=== PATIENT | female | born 1940 | race African-American/Black ===

== ENCOUNTER → 2017-05-07 13:57 | Outpatient (CLI) | payer MEDICARE, OTHER, SELFPAY ==
[2017-05-07 14:00] VITALS: PULSE 74; PULSE 80; PULSE 82; PULSE 86; PULSE 90; PULSE 92; PULSE 95; O2SAT 92; O2SAT 96; O2SAT 97; O2SAT 98
--- NOTE | 2017-05-07 14:24 | CPS ---
Pt states she usually walks faster but her knee is bothering her. She states she has surgery scheduled in the near future.
--- NOTE | 2017-05-08 08:31 | WT_ITS ---
PSN 6 Minute Walk Test - 6 Minute Walk Test 6 Minute Walk Test: 6 Minute Walk Test PSN:6-Minute Walk Test Start: 05/07/17 14: 19 Freq: Status: Active Protocol: RESP.6MINW Document 05/07/17 14:00 SMB (Rec: 05/07/17 14:28 SMB [id number]) 6 Minute Walk Test Date Performed 05/07/17 Time Performed 14:00 Height 5 ft 5 in Weight: 76.657 kg Weight in Pounds 169.[address]: Juan Manuel Ching Assistive device used: None Pre-test Oxygen Delivery Method Room Air Pulse Ox (%) 97 Pulse Rate (60-100 beats/min) 74 Dyspnea Chio Scale (0-10) 0 Exertion Chio Scale (6-20) 6 1st minute Oxygen Delivery Method Room Air Pulse Ox (%) 98 Pulse Rate (60-100 beats/min) 80 2nd minute Oxygen Delivery Method Room Air Pulse Ox (%) 92 Pulse Rate (60-100 beats/min) 86 3rd minute Oxygen Delivery Method Room Air Pulse Ox (%) 96 Pulse Rate (60-100 beats/min) 90 4th minute Oxygen Delivery Method Room Air Pulse Ox (%) 97 Pulse Rate (60-100 beats/min) 92 5th minute Oxygen Delivery Method Room Air Pulse Ox (%) 98 Pulse Rate (60-100 beats/min) 92 6th minute Oxygen Delivery Method Room Air Pulse Ox (%) 98 Pulse Rate (60-100 beats/min) 95 Dyspnea Chio Scale (0-10) 0 Exertion Chio Scale (6-20) 12 Post-test Oxygen Delivery Method Room Air Pulse Ox (%) 98 Pulse Rate (60-100 beats/min) 82 Full Laps Walked 11 Partial Lap, Number of Tiles Walked 30 Total Distance Walked (ft) 679 05/07/17 14:24 Cardiopulmonary Services by Eliza Hwang Pt states she usually walks faster but her knee is bothering her. She states she has surgery scheduled in the near future. Initialized on 05/07/17 14:24 - END OF NOTE - Interpretation Interpretation: Patient was able to ambulate only 679 feet over the course of 6 minutes on room air with no assistive devices or breaks. The patient did not experience any significant desaturation or tachycardia during testing. These findings are consistent with a musculoskeletal limitation exercise tolerance. - Recommendations Recommendations: No supplemental oxygen is indicated at this time. Sensitivity for desaturation is limited given minimal distance travel.
== END ==
PROVIDERS: Family Provider Family Medicine; PCP Family Medicine; Visit Provider Nurse Practitioner Acute Care
DX: R06.02 Shortness of breath (principal)
CPT/HCPCS: 94618

== ENCOUNTER → 2017-05-09 09:57 | Outpatient (CLI) | payer MEDICARE, OTHER, SELFPAY ==
--- NOTE | 2017-05-09 14:16 | PFTCOMP ---
COMPLETE PULMONARY FUNCTION TEST INTERPRETATION Brief HPI: Patient is a 76 year old Black female, currently under the care of Geovanna Garcia, who presents to [facility] for complete pulmonary function tests secondary to diagnosis of dyspnea. Respiratory therapist reports good effort and reproducible results. Interpretation: Forced expiration spirometry shows a moderate large airways obstructive ventilatory defect with an FEV1 of 67% predicted. There is a significant bronchodilator response in FVC and FEV1 by ATS criteria. Spirograms are of good quality and plateau slowly, indicating slowly emptying areas of the lungs. The respiratory flow volume loop shows decreased expiratory flow rates at all lung volumes consistent with airway obstruction. Lung volumes by body plethysmography show a normal total lung capacity at 4.7 L, 94 % predicted. FRC and RV are elevated out of proportion. Lung volume measurements are consistent with air-trapping. Diffusion capacity by carbon monoxide is normal at 69 % predicted. The airway resistance is elevated. No previous pulmonary function tests were available for review. Impression: Partially reversible moderate large airways obstructive ventilatory defect resulting in air trapping.
--- NOTE | 2017-05-09 14:19 | PFTCOMP_ITS ---
COMPLETE PULMONARY FUNCTION TEST INTERPRETATION Brief HPI: Patient is a 76 year old Black female, currently under the care of Geovanna Garcia, who presents to [facility] for complete pulmonary function tests secondary to diagnosis of dyspnea. Respiratory therapist reports good effort and reproducible results. Interpretation: Forced expiration spirometry shows a moderate large airways obstructive ventilatory defect with an FEV1 of 67% predicted. There is a significant bronchodilator response in FVC and FEV1 by ATS criteria. Spirograms are of good quality and plateau slowly, indicating slowly emptying areas of the lungs. The respiratory flow volume loop shows decreased expiratory flow rates at all lung volumes consistent with airway obstruction. Lung volumes by body plethysmography show a normal total lung capacity at 4.7 L , 94 % predicted. FRC and RV are elevated out of proportion. Lung volume measurements are consistent with air-trapping. Diffusion capacity by carbon monoxide is normal at 69 % predicted. The airway resistance is elevated. No previous pulmonary function tests were available for review. Impression: Partially reversible moderate large airways obstructive ventilatory defect resulting in air trapping.
== END ==
PROVIDERS: Family Provider Family Medicine; PCP Family Medicine; Visit Provider Nurse Practitioner Acute Care
DX: R06.02 Shortness of breath (principal)
CPT/HCPCS: 94060; 94726; 94729

== ENCOUNTER → 2018-02-02 14:40 | Outpatient (CLI) | payer MEDICARE, OTHER, SELFPAY ==
[2017-12-18 12:40] VITALS: BMI 24.7
[2018-02-02 17:51] LABS: Absolute Lymphocyte Count 2.08 X10^3/ul (0.83-4.51); Absolute Neutrophil Count 1.8 X10^3/uL (2.0-7.7); Basophil# 0.02 X10^3/uL; Basophil% 0.4 % (0-1); Eosinophil# 0.12 X10^3/uL; Eosinophils% 2.6 % (0-5); Hematocrit 38.2 % (37-47); Hemoglobin 12.4 g/dl (12.0-15.0); Lymphocyte # 2.08 X10^3/ul (4.0); Lymphocyte % 45.7 % (19-41); Mean Corp Hgb Conc 32.5 g/gl (32-36); Mean Corpuscular Hgb 33.4 pg (27.0-32.0); Mean Platelet Vol. 9.6 fl (6.2-12.0); Monocyte# 0.53 X10^3/uL; Monocyte% 11.6 % (0-10); Neutrophil # 1.79 X10^3/uL (2.7-7.7); Neutrophil % 39.5 % (47-70); Platelet Count 290 K/mm3 (150-450); RBC Distribution Width CV 13.6 % (11.6-14.6); RBC Distribution Width SD 49.7 fl (35.1-43.9); Red Blood Count 3.71 M/mm3 (4.2-5.4); White Blood Count 4.6 K/mm3 (4.4-11.0)
[2018-02-02 17:54] LABS: POSITIVE COUNT NO; POSITIVE DIFFERENTIAL NO; POSITIVE MORPHOLOGY NO
[2018-02-02 18:05] LABS: ALB/GLOB Ratio 0.9 RATIO (0.9-2.4); AST(SGOT) 22 U/L (15-37); Alanine Aminotransfer ALT/SGPT 26 U/L (13-56); Albumin, Serum 3.7 g/dL (3.2-5.0); Alkaline Phosphatase 102 U/L (45-117); Anion Gap 10 (5-15); BUN 20 mg/dL (7-18); Calcium,Total 8.8 mg/dL (8.5-10.1); Chloride 111 mmol/L (98-107); Creatinine, Serum 1.11 mg/dL (0.55-1.02); EST Glomerular Filtration Rate 51 mL/min (>60); Est Glom Filt Rate - Afr Amer 62 mL/min (>60); Globulin 4.1 g/dL (2.2-4.2); Glucose 73 mg/dL (74-106); Potassium 3.7 mmol/L (3.5-5.1); Protein, Total 7.8 g/dL (6.4-8.2); Sodium Level 145 mmol/L (136-145)
== END ==
PROVIDERS: Family Provider Family Medicine; PCP Family Medicine; Referring Provider Internal Medicine Rheumatology; Visit Provider Internal Medicine Rheumatology
DX: M06.4 Inflammatory polyarthropathy (principal); Z79.899 Other long term (current) drug therapy; M79.7 Fibromyalgia; M35.00 Sjogren syndrome, unspecified; M15.9 Polyosteoarthritis, unspecified; G56.00 Carpal tunnel syndrome, unspecified upper limb; K21.0 Gastro-esophageal reflux disease with esophagitis
CPT/HCPCS: 36415; 80053; 85025

== ENCOUNTER → 2018-04-08 13:13 | Outpatient (CLI) | payer MEDICARE, OTHER, SELFPAY ==
[2017-12-18 12:40] VITALS: BMI 24.7
[2018-04-08 16:12] LABS: Absolute Lymphocyte Count 1.85 X10^3/ul (0.83-4.51); Absolute Neutrophil Count 2.4 X10^3/uL (2.0-7.7); Basophil# 0.03 X10^3/uL; Basophil% 0.6 % (0-1); Eosinophil# 0.27 X10^3/uL; Eosinophils% 5.3 % (0-5); Hematocrit 37.3 % (37-47); Hemoglobin 11.8 g/dl (12.0-15.0); Lymphocyte # 1.85 X10^3/ul (4.0); Lymphocyte % 36.4 % (19-41); Mean Corp Hgb Conc 31.6 g/gl (32-36); Mean Corpuscular Volume 101.1 fL (81-99); Mean Platelet Vol. 10.3 fl (6.2-12.0); Monocyte% 9.8 % (0-10); Neutrophil # 2.43 X10^3/uL (2.7-7.7); Neutrophil % 47.9 % (47-70); Platelet Count 227 K/mm3 (150-450); RBC Distribution Width CV 12.1 % (11.6-14.6); RBC Distribution Width SD 43.2 fl (35.1-43.9); Red Blood Count 3.69 M/mm3 (4.2-5.4); White Blood Count 5.1 K/mm3 (4.4-11.0)
[2018-04-08 16:13] LABS: AST(SGOT) 16 U/L (15-37); Alanine Aminotransfer ALT/SGPT 21 U/L (13-56); Albumin, Serum 3.4 g/dL (3.2-5.0); Alkaline Phosphatase 92 U/L (45-117); Anion Gap 6 (5-15); BUN 22 mg/dL (7-18); BUN/Creat Ratio 18.2 RATIO (10-20); Calcium,Total 8.9 mg/dL (8.5-10.1); Chloride 114 mmol/L (98-107); Creatinine, Serum 1.21 mg/dL (0.55-1.02); EST Glomerular Filtration Rate 46 mL/min (>60); Est Glom Filt Rate - Afr Amer 56 mL/min (>60); Globulin 3.3 g/dL (2.2-4.2); Glucose 89 mg/dL (74-106); Potassium 4.4 mmol/L (3.5-5.1); Protein, Total 6.7 g/dL (6.4-8.2); Sodium Level 144 mmol/L (136-145)
[2018-04-08 16:44] LABS: POSITIVE COUNT NO; POSITIVE DIFFERENTIAL NO; POSITIVE MORPHOLOGY NO
== END ==
PROVIDERS: Family Provider Family Medicine; PCP Family Medicine; Referring Provider Internal Medicine Rheumatology; Visit Provider Internal Medicine Rheumatology
DX: M06.4 Inflammatory polyarthropathy (principal); Z79.899 Other long term (current) drug therapy; M79.7 Fibromyalgia; M35.00 Sjogren syndrome, unspecified; G56.00 Carpal tunnel syndrome, unspecified upper limb; K21.0 Gastro-esophageal reflux disease with esophagitis; I10 Essential (primary) hypertension; E11.9 Type 2 diabetes mellitus without complications; Z86.718 Personal history of other venous thrombosis and embolism
CPT/HCPCS: 36415; 80053; 85025

== ENCOUNTER → 2018-05-14 10:57 | Outpatient (CLI) | payer MEDICARE, OTHER, SELFPAY ==
[2017-12-18 12:40] VITALS: BMI 24.7
--- NOTE | 2018-05-15 10:51 | PFT_ITS ---
INTRODUCTION: The patient is a 77-year-old -[place] female that presents for pulmonary function studies secondary to a diagnosis of COPD. Respiratory therapy reports good patient effort. Bronchodilators were used during testing. INTERPRETATION: Forced expiration spirometry demonstrates the presence of a mild large airways obstructive ventilatory defect. There was no significant response to aerosolized bronchodilators. Spirograms are of good quality and do not plateau indicating slow emptying of the lungs. Body plethysmography was performed and reveals a decreased TLC to 4.1 L, 81% of predicted, indicative of a mild restrictive ventilatory impairment. Diffusing capacity by single breath CO is within normal limits at 83% of predicted. IMPRESSION: These pulmonary function studies demonstrate the presence of an irreversible mild mixed ventilatory defect with preserved diffusing capacity.
== END ==
PROVIDERS: Family Provider Family Medicine; PCP Family Medicine; Referring Provider Nurse Practitioner Acute Care; Visit Provider Nurse Practitioner Acute Care
DX: J44.9 Chronic obstructive pulmonary disease, unspecified (principal)
CPT/HCPCS: 94060; 94726; 94729

== ENCOUNTER → 2018-05-18 10:49 | Outpatient (CLI) | payer MEDICARE, OTHER, SELFPAY ==
[2017-12-18 12:40] VITALS: BMI 24.7
[2018-05-18 11:00] VITALS: PULSE 66; PULSE 69; PULSE 70; PULSE 81; PULSE 82; PULSE 86; O2SAT 96; O2SAT 97; O2SAT 98; O2SAT 99
--- NOTE | 2018-05-18 13:30 | PCM.PSN.6M ---
PSN 6 Minute Walk Test - 6 Minute Walk Test 6 Minute Walk Test: 6 Minute Walk Test PSN:6-Minute Walk Test Start: 05/18/18 11:15 Freq: Status: Active Protocol: RESP.6MINW Document 05/18/18 11:00 EW (Rec: 05/18/18 11:18 EW [id number]) 6 Minute Walk Test Date Performed 05/18/18 Time Performed 11:00 Height 5 ft 5 in Weight: 69.4 kg Weight in Pounds 153.[address]: Geovanna Garcia Assistive device used: None Pre-test Oxygen Delivery Method Room Air Pulse Ox (%) 96 Pulse Rate (60-100 beats/min) 66 Dyspnea Chio Scale (0-10) 1 Exertion Chio Scale (6-20) 7 1st minute Oxygen Delivery Method Room Air Pulse Ox (%) 96 Pulse Rate (60-100 beats/min) 70 2nd minute Oxygen Delivery Method Room Air Pulse Ox (%) 97 Pulse Rate (60-100 beats/min) 81 3rd minute Oxygen Delivery Method Room Air Pulse Ox (%) 98 Pulse Rate (60-100 beats/min) 86 4th minute Oxygen Delivery Method Room Air Pulse Ox (%) 99 Pulse Rate (60-100 beats/min) 81 5th minute Oxygen Delivery Method Room Air Pulse Ox (%) 98 Pulse Rate (60-100 beats/min) 82 6th minute Oxygen Delivery Method Room Air Pulse Ox (%) 99 Pulse Rate (60-100 beats/min) 82 Post-test Oxygen Delivery Method Room Air Pulse Ox (%) 98 Pulse Rate (60-100 beats/min) 69 Dyspnea Chio Scale (0-10) 1 Exertion Chio Scale (6-20) 11 Full Laps Walked 13 Partial Lap, Number of Tiles Walked 0 Total Distance Walked (ft) 767 - Interpretation Interpretation: The patient was able to ambulate 767 feet over the course of 6 minutes on room air with no assistive devices or breaks. Patient experienced no significant tachycardia or desaturations during testing. These findings are consistent with a musculoskeletal limitation exercise tolerance. - Recommendations Recommendations: No supplemental oxygen is indicated at this time.
== END ==
PROVIDERS: Family Provider Family Medicine; PCP Family Medicine; Referring Provider Nurse Practitioner Acute Care; Visit Provider Nurse Practitioner Acute Care
DX: J44.9 Chronic obstructive pulmonary disease, unspecified (principal)
CPT/HCPCS: 94618

== ENCOUNTER → 2018-06-04 11:41 | Outpatient (CLI) | payer MEDICARE, OTHER, SELFPAY ==
[2018-06-04 11:12] VITALS: BMI 26.1
[2018-06-04 12:18] LABS: Absolute Lymphocyte Count 1.75 X10^3/ul (0.83-4.51); Absolute Neutrophil Count 2.4 X10^3/uL (2.0-7.7); Basophil# 0.04 X10^3/uL; Basophil% 0.8 % (0-1); Eosinophil# 0.14 X10^3/uL; Hematocrit 35.7 % (37-47); Hemoglobin 11.6 g/dl (12.0-15.0); Lymphocyte # 1.75 X10^3/ul (4.0); Lymphocyte % 37.2 % (19-41); Mean Corp Hgb Conc 32.5 g/gl (32-36); Mean Corpuscular Hgb 31.8 pg (27.0-32.0); Mean Corpuscular Volume 97.8 fL (81-99); Mean Platelet Vol. 9.3 fl (6.2-12.0); Monocyte# 0.36 X10^3/uL; Monocyte% 7.6 % (0-10); Neutrophil # 2.42 X10^3/uL (2.7-7.7); Neutrophil % 51.4 % (47-70); Platelet Count 229 K/mm3 (150-450); RBC Distribution Width CV 14.1 % (11.6-14.6); RBC Distribution Width SD 49.9 fl (35.1-43.9); Red Blood Count 3.65 M/mm3 (4.2-5.4); White Blood Count 4.7 K/mm3 (4.4-11.0)
[2018-06-04 12:29] LABS: POSITIVE COUNT NO; POSITIVE DIFFERENTIAL NO; POSITIVE MORPHOLOGY NO
[2018-06-15 03:05] LABS: Alternaria tenuis <0.10 kU/L (Class 0); Ash, White <0.10 kU/L (Class 0); Aspergillus fumigatus <0.10 kU/L (Class 0); Bermuda Grass <0.10 kU/L (Class 0); Birch <0.10 kU/L (Class 0); Black Walnut <0.10 kU/L (Class 0); Cat Hair / Dander,Stand <0.10 kU/L (Class 0); Cedar, Mountain <0.10 kU/L (Class 0); Cladosporium herbarum <0.10 kU/L (Class 0); Cockroach, American <0.10 kU/L (Class 0); Cottonwood <0.10 kU/L (Class 0); D farinae Mite <0.10 kU/L (Class 0); D pteronyssinus <0.10 kU/L (Class 0); Dog Epithelia <0.10 kU/L (Class 0); Elm, American White <0.10 kU/L (Class 0); Immunoglobulin E 35 IU/mL (6-495); Maple/Box Elder <0.10 kU/L (Class 0); Mulberry, White <0.10 kU/L (Class 0); Oak, White <0.10 kU/L (Class 0); Pecan <0.10 kU/L (Class 0); Penicillium Notatum <0.10 kU/L (Class 0); Pigweed, Rough <0.10 kU/L (Class 0); Ragweed, Short/Common <0.10 kU/L (Class 0); Russian Thistle <0.10 kU/L (Class 0); Sheep Sorrel <0.10 kU/L (Class 0); Sycamore, American <0.10 kU/L (Class 0); Timothy Grass <0.10 kU/L (Class 0)
[2018-06-15 10:01] LABS: Immunoglobulin E 41 IU/mL (6-495); Mouse Urine <0.10 kU/L (Class 0)
== END ==
PROVIDERS: Family Provider Family Medicine; PCP Family Medicine; Referring Provider Internal Medicine Critical Care Medicine; Visit Provider Internal Medicine Critical Care Medicine
DX: I10 Essential (primary) hypertension (principal); J30.9 Allergic rhinitis, unspecified
CPT/HCPCS: 36415; 82785; 85025; 86003

== ENCOUNTER → 2018-10-15 10:41 | Outpatient (CLI) | payer MEDICARE, OTHER, SELFPAY ==
[2018-06-04 11:12] VITALS: BMI 26.1
--- NOTE | 2018-10-15 10:47 | ADU_ITS ---
Reason For Study: Atherosclerosis Right Velocities Left Velocities Ext. Iliac Artery, dist = 208.9 cm./sec. Ext Iliac Artery, dist = 170.1 cm./sec. Common Femoral Artery, mid = 159.6 cm./sec. Common Femoral Artery, mid = 144.1 cm./sec. Supf Femoral Artery, prox = 144 cm./sec. Supf. Femoral Artery, prox = 137.4 cm./sec. Supf Femoral Artery, mid = 111 cm./sec. Supf. Femoral Artery, mid = 124.2 cm./sec. Supf Femoral Artery, dist. = 68.3 cm./sec. Supf. Femoral Artery, dist = 91.3 cm./sec. Profunda Femoral Artery = 119.8 cm./sec. Profunda Femoral Artery = 122 cm./sec. Popliteal Artery, prox. = 52.3 cm./sec. Popliteal Artery, proximal, = 57.2 cm./sec. Popliteal Artery, mid = 57.2 cm./sec. Popliteal Artery, mid = 63.4 cm./sec. Popliteal Artery, dist = 107 cm./sec. Popliteal Artery, distal = 63.4 cm./sec. Ant. Tibial Artery, prox = 69.5 cm./sec. Ant.Tibial Artery, prox = 48.7 cm./sec. Ant. Tibial Artery, mid = 62.1 cm./sec. Ant Tibial Artery, mid = 61 cm./sec. Ant. Tibial Artery, dist = 44.9 cm./sec. Ant. Tibial Artery, distal = 54.4 cm./sec. Post. Tibial Artery, prox = 72.3 cm./sec. Post. Tibial Artery, prox = 78.1 cm./sec. Post. Tibial Artery, mid = 77.8 cm./sec. Post Tibial Artery, mid = 59.7 cm./sec. Post. Tibial Artery, dist = 51.1 cm./sec. Post Tibial Artery, dist. = 56 cm./sec. Peroneal Artery, prox = 59.7 cm./sec. Peroneal Artery, prox = 65.8 cm./sec. Peroneal Artery, mid = 44.9 cm./sec. Peroneal Artery, mid = 67 cm./sec. Peroneal Artery,dist = 30.2 cm./sec. Peroneal Artery,dist. = 36.9 cm./sec. Procedure Exam performed in department. Interpretation Summary 1. bilateral lower extremity with triphasic flow and no stenosis visualized. Ordering Physician: Stanford Menard Referring Physician: Albert Jasso Performed By: Eliza Stephens RVT
== END ==
PROVIDERS: Family Provider Family Medicine; PCP Family Medicine; Referring Provider Surgery Vascular Surgery; Visit Provider Surgery Vascular Surgery
DX: I70.213 Atherosclerosis of native arteries of extremities with intermittent claudication, bilateral legs (principal)
CPT/HCPCS: 93925

== ENCOUNTER → 2019-03-29 | Outpatient (CLI) | payer MEDICARE, OTHER, SELFPAY ==
[2018-12-15 10:53] VITALS: BMI 27.3
--- NOTE | 2019-03-29 13:44 | RAD_ITS ---
STUDY: X-RAY - CERVICAL SPINE REASON FOR EXAM: Female, 78 years old. CHRONIC NECK PAIN TECHNIQUE: 2 view(s) of the cervical spine were obtained. COMPARISON: None FINDINGS: There are degenerative changes of the anterior atlantoaxial articulation. Normal odontoid process. There is straightening of the normal cervical lordosis. There is been a prior fusion C4-C5 and C6. There is degenerative change at C3-C4 and C6-C7. Normal disc space heights. Normal visualized intervertebral neuroforamina. The soft tissue structures are unremarkable. RAD/Cerv Spine 2 or 3 Views IMPRESSION: Prior fusion in the mid cervical vertebral bodies. Degenerative change proximal and distal to the fusion. No visualized acute fracture, a comparison study would be helpful to establish stability.. Electronically Signed: Jie Velazquez MD at 0:52 EST Tel , Service support ,
--- NOTE | 2019-03-29 14:02 | RAD_ITS ---
STUDY: X-RAY - LUMBAR SPINE REASON FOR EXAM: Female, 78 years old. CHRONIC LOW BACK PAIN TECHNIQUE: 2 view(s) of the lumbar spine were obtained. COMPARISON: CT scan abdomen and pelvis bone windows March 30, 2012 FINDINGS: There is straightening of the normal lumbar lordosis. There is no substantial scoliosis. There is a normal alignment of the vertebrae. There is a spinal fusion at L3-L4. There is partial protrusion of the disc spacer is seen on the prior CT scan abdomen and pelvis August 28, 2012.. There is multilevel disc space narrowing. This is especially seen at the level L4-L5 L5-S1 with vacuum phenomenon. There is postoperative change in the left upper quadrant. RAD/Lumbar Spine 2 or 3 Views IMPRESSION: Status post spinal fusion L3-L4 with persistent protrusion of the disc space . No evidence of acute loss of height or alignment. Postoperative changes left upper quadrant.. Electronically Signed: Jie Velazquez MD at 0:53 EST Tel , Service support ,
== END | disposition home or self-care (01) ==
LOC: RAD 13:16
PROVIDERS: PCP Family Medicine; Referring Provider Anesthesiology Pain Medicine; Visit Provider Anesthesiology Pain Medicine
DX: M54.2 Cervicalgia (principal); M54.5 Low back pain
CPT/HCPCS: 72040; 72100

== ENCOUNTER 2019-07-19 10:49 | Emergency (ER) | payer MEDICARE, OTHER, SELFPAY ==
[2019-07-09 13:08] VITALS: BMI 26.6
[2019-07-19] VITALS (8 sets, daily range): BP systolic 127–157; BP diastolic 67–87; PULSE 52–63; RESP 13–19; TEMP 36.1–36.8; O2SAT 95–99; BMI 26.4
--- NOTE | 2019-07-19 11:31 | EKG12_ITS ---
Test Reason : ILLNESS Blood Pressure : / mmHG Vent. Rate : 088 BPM Atrial Rate : 046 BPM P-R Int : 000 ms QRS Dur : 084 ms QT Int : 392 ms P-R-T Axes : 022 028 048 degrees QTc Int : 474 ms Atrial fibrillation Nonspecific T wave abnormality Prolonged QT Abnormal ECG Confirmed by JOSIE ULLOA, LETHA ([id number]), newspaper editor managing RAHUL WHITE ([id number]) on 07/20/2019 3:46:21 PM Referred By: MADISON Confirmed By:LETHA GALINDO MD
--- NOTE | 2019-07-19 11:33 | ED.DCSUM_ITS ---
History of Present Illness Chief Complaint: Shortness of Breath Informant: Patient Onset: Weeks - 1-2 Activity at onset: Unknown Timing: Intermittent - it's frequent, Lasts - it's frequent Quality: Dull, Pain, Pressure Location: Left Chest - no radiation Current Severity: Mild Maximum Severity: Moderate Worsened By: Breathing - sometimes Relieved By: Nothing Associated Symptoms: Dyspnea - worse w/ exertion, Cough. Negative for: Nausea, Vomiting, Diaphoresis, Fever, Lightheadedness, Palpitations Narrative: Apparently patient was seen in the office today, by cardiology, she does not know why she sees cardiology as an outpatient, and she does not know what kind of medical problems or medication she takes/has, she apparently was too short of breath to be evaluated there and was sent here. They wanted to test her for COVID, but they were concerned about how long it would take the test to come back. Patient states she has been having some mild chest discomfort that occasionally is pleuritic. She has a history of DVT and PE, this does not necessarily feel like her prior PE, it is left upper chest. It does not radiate down her arm and is not exertional. She can provide few details about the timing and nature of the onset of this. She is speaking full sentences, she states that her memory is poor. 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 (6) Deep vein thrombosis of both lower extremities Status: Resolved (7) History of pulmonary embolus (PE) Status: Resolved Past Medical History - Allergies and Home Meds Allergies/Adverse Reactions: Allergies codeine Allergy (Mild, Verified 07/19/19 12:25) Nausea/Vomitting morphine Allergy (Mild, Verified 07/19/19 12:25) Nausea/vomitting oxycodone Allergy (Mild, Verified 07/19/19 12:25) Itching Primary Care Physician: Albert Jasso MD [Primary Care Provider] - 3-5 Days Surgical History: knee arthroscopy, bunion surgery, Lucy fundoplication,, rotator cuff repair Review of Systems General: Reports: Chills. Denies: Fever, Sweats Eyes: Denies: Visual changes - bilaterally, Diplopia ENT: Denies: Bilateral ear pain, Rhinorrhea, Sore throat Cardiovascular: Reports: Chest pain. Denies: Palpitations, Heart racing Respiratory: Reports: Dyspnea, Cough, Dyspnea on exertion. Denies: Sputum, Orthopnea Gastrointestinal: Denies: Abdominal pain, Nausea, Vomiting, Diarrhea, Melena, Hematochezia Genitourinary: Denies: Dysuria, Hematuria, Frequency Musculoskeletal: Reports: Swelling - chronic, worse. Denies: Myalgias, Neck pain, Back pain, Extremity Pain Skin: Denies: Rash, Wounds Neurological: Denies: Headache, Weakness, Numbness Physical Exam Vital Signs/Narrative: Vital Signs Temp Pulse Resp BP Pulse Ox 07/19/19 10:49 98.3 F 60 18 152/70 H 95 Inital Vital Signs reviewed: Yes General: Well nourished, Well developed, No Acute Distress - Well-appearing, no distress. Speaking in full sentences. Laughing at times. Head: Normocephalic, Atraumatic Eyes: Perrl, EOMI ENT: Moist mucous membranes, No rhinorrhea Neck: Supple, Nontender, No lymphadenopathy, No JVD Cardiovascular: Regular rate, Regular rhythm, No murmurs Respiratory: No distress, CTA bilaterally, Chest nontender Abdomen: Soft, Nontender, Nondistended, Normal bowel sounds Back: Nontender, Normal Inspection Extremities: Nontender, Edema - 1+ bilateral lower extremity mid underwood symmetric. Negative for: Calf Tenderness Skin: Normal color, No rash, No Trauma Neurological: Alert, Oriented x3, Cranial nerves II-XII grossly intact, Normal Strength, Normal Sensation Psychological: Normal affect, Normal Mood Diagnostic/Tx/Re-eval Impressions Chest X-Ray 07/19/19 12:00 IMPRESSION: Degenerative changes, as described above. No demonstrated acute cardiopulmonary process. Electronically Signed: Barbra Josselin, at 12:32 EDT Tel , Service support , 07/19/19 12:00 Chest 1 View (Portable) [RAD] Stat Laboratory Results 07/19/19 07/19/19 07/19/19 15:10 15:10 15:10 WBC 6.1 RBC 3.82 L Hgb 12.2 Hct 37.1 MCV 97.1 MCH 31.9 MCHC 32.9 RDW Std Deviation 45.2 H RDW Coeff of Consuelo 12.7 Plt Count 234 MPV 9.9 Immature Gran % (Auto) 0.300 Neut % (Auto) 55.8 Lymph % (Auto) 31.1 Hardy % (Auto) 9.5 Eos % (Auto) 2.6 Baso % (Auto) 0.7 Absolute Neuts (auto) 3.4 Absolute Lymphs (auto) 1.90 Nucleated RBC % 0 PT 23.4 H INR 2.1 Sodium 146 H Potassium 3.6 Chloride 119 H Carbon Dioxide 23.0 Anion Gap 4 L BUN 17 Creatinine 1.08 H Estim Creat Clear Calc 41.49 Est GFR (MDRD) Af Amer 63 Est GFR (MDRD) Non-Af 52 L BUN/Creatinine Ratio 15.7 Glucose 150 H Calcium 8.3 L Troponin I < 0.015 - Rhythm Strip Rhythm Strip: Sinus Rhythm Rate: 88 Ectopy: None - EKG Initial EKG Interpretation: No Acute Injury Pattern, Sinus Arrythmia, - - prolonged QTc Prior: Unchanged - same barely-noticeable P waves - Medical Decision Making There were significant delay in this patient's work-up here in the emergency department, she was here for about 5.5 or more hours. No one was able to obtain blood work on her. Her chest x-ray was unremarkable. She initially did not want a femoral stick, but eventually allowed it and it was done in a delayed fashion because of that and because of ED volume/acuity. Aside from slight hyperchloremia and hypernatremia, her labs really are pretty unremarkable. Her EKG shows a sinus arrhythmia. Her troponin is negative. She is very well- appearing and not hypoxic. On reevaluation without any treatment, she does not have dyspnea and is speaking in full sentences as she was at the beginning of her visit. I certainly see no reason to admit her to the hospital at this time. I did discuss with the [facility] and obtain permission to test her for COVID. That test is sent, but will not come back today. Patient was given appropriate discharge instructions regarding this and follow-up. Her INR returned therapeutic therefore recurrent pulmonary embolus is highly unlikely and I do not think it is necessary to perform CT angiography at this time. Procedures Procedure(s): Femoral venipuncture --via ultrasound guidance, and after chlorhexidine prep and obtaining verbal consent from the patient, a 21-gauge needle and 20 cc syringe was used to successfully obtain dark red nonpulsatile blood from the right femoral vein. Dressing placed afterwards, no complication, tolerated well. ED Disposition - Plan for ED Patient: Disposition: Home or Assisted Living Diagnosis: Viral upper respiratory tract infection, Encounter for laboratory testing for COVID-19 virus, Left-sided chest pain Instructions: ED Upper Resp Infec No Abx Tx Referrals: Albert Jasso MD [Primary Care Provider] - 3-5 Days Additional Instructions: See additional attached instructions regarding the possibility of COVID infection; you were tested for this, you should receive a phone call regarding the results.
--- NOTE | 2019-07-19 12:00 | RAD_ITS ---
STUDY: X-RAY CHEST REASON FOR EXAM: Female, 78 years old. COUGH X 2 WEEKS TECHNIQUE: Single AP portable view of the chest. COMPARISON: None. FINDINGS: The lungs are clear and expanded. There is no demonstrated pleural abnormality. Normal size heart. Normal mediastinum and teena. Normal visualized pulmonary arteries. Normal visualized aortic arch and descending thoracic aorta. There is demineralization of the osseous structures. There is degenerative osteoarthritis of the bilateral shoulders. There is no demonstrated abnormality of the visualized soft tissue structures of the upper abdomen. RAD/Chest 1 View (Portable) IMPRESSION: Degenerative changes, as described above. No demonstrated acute cardiopulmonary process. Electronically Signed: Barbra Schwab, at 12:32 EDT Tel , Service support ,
[2019-07-19 15:23] LABS: Absolute Neutrophil Count 3.4 X10^3/uL (2.0-7.7); Basophil# 0.04 X10^3/uL; Basophil% 0.7 % (0-1); Eosinophil# 0.16 X10^3/uL; Eosinophils% 2.6 % (0-5); Hematocrit 37.1 % (37-47); Hemoglobin 12.2 g/dL (12.0-15.0); Lymphocyte % 31.1 % (19-41); Mean Corp Hgb Conc 32.9 g/dL (32-36); Mean Corpuscular Hgb 31.9 pg (27.0-32.0); Mean Corpuscular Volume 97.1 fL (81-99); Mean Platelet Vol. 9.9 fl (6.2-12.0); Monocyte# 0.58 X10^3/uL; Monocyte% 9.5 % (0-10); NRBC Flagged by Analyzer 0 % (0-5); Neutrophil % 55.8 % (47-70); Platelet Count 234 K/mm3 (150-450); RBC Distribution Width CV 12.7 % (11.6-14.6); RBC Distribution Width SD 45.2 fl (35.1-43.9); Red Blood Count 3.82 M/mm3 (4.2-5.4); White Blood Count 6.1 K/mm3 (4.4-11.0)
[2019-07-19 15:40] LABS: Anion Gap 4 (5-15); BUN 17 mg/dL (7-18); BUN/Creat Ratio 15.7 RATIO (10-20); Calcium,Total 8.3 mg/dL (8.5-10.1); Chloride 119 mmol/L (98-107); Creatinine, Serum 1.08 mg/dL (0.55-1.02); EST Glomerular Filtration Rate 52 mL/min (>60); Est Glom Filt Rate - Afr Amer 63 mL/min (>60); Estimated Creatinine Clearance 41.49 ml/min; Glucose 150 mg/dL (74-106); Potassium 3.6 mmol/L (3.5-5.1); Sodium Level 146 mmol/L (136-145)
[2019-07-19 16:24] LABS: International Normalized Ratio 2.1; Prothrombin Time (Protime)PT. 23.4 SECONDS (11.7-14.9)
== END 2019-07-19 17:06 | disposition home or self-care (01) ==
PROVIDERS: Emergency Provider Emergency Medicine; PCP Family Medicine
DX: J06.9 Acute upper respiratory infection, unspecified (principal); R07.9 Chest pain, unspecified; J44.9 Chronic obstructive pulmonary disease, unspecified; I11.0 Hypertensive heart disease with heart failure; I50.32 Chronic diastolic (congestive) heart failure; E78.5 Hyperlipidemia, unspecified; Z11.59 Encounter for screening for other viral diseases; Z86.718 Personal history of other venous thrombosis and embolism; Z86.711 Personal history of pulmonary embolism
CPT/HCPCS: 36410; 71045; 80048; 84484; 85025; 85610; 87635; 93005; 99283; G2023; A4216; U0002; U0004

== ENCOUNTER → 2019-08-02 | Outpatient (CLI) | payer MEDICARE, OTHER, SELFPAY ==
[2019-07-19 10:49] VITALS: BMI 26.4
--- NOTE | 2019-08-02 06:40 | ECHOD_ITS ---
Reason For Study: CHF Procedure This was a 2D Doppler, Color Flow transthoracic echocardiogram. Contrast injection was performed. Exam performed in department. Left Ventricle Normal LV size. Left ventricular systolic function is normal. The estimated ejection fraction is 65 %. Stage 2 diastolic dysfunction. No regional wall motion abnormalities noted. Right Ventricle Normal RV size. Normal systolic function. Atria The left atrium is mildly enlarged. Normal right atrium. Bubble contrast study negative for right to left interatrial shunt. Mitral Valve Normal mitral valve. Mild (1+) eccentric mitral valve insufficiency. Tricuspid Valve Normal tricuspid valve. Mild tricuspid valve insufficiency. Pulmonary artery systolic pressure is 38 mmHg. Mild pulmonary hypertension. Aortic Valve Normal aortic valve. Trisinus/trileaflet aortic valve. Pulmonic Valve Normal pulmonic valve. Great Vessels Normal aortic root. The pulmonary artery is normal size. Inferior vena cava collapse with sniff. Pericardium/Pleural No pericardial effusion. Medication 22 gauge I.V. with prn adaptor inserted into left arm. Performed a rapid injection of agitated mix of 9 cc saline and 1cc air to assess for atrial septal defect. MMode/2D Measurements & Calculations LVIDd: 3.9 cm IVSd: 1.4 cm Ao root diam: 3.1 cm LVIDs: 2.5 cm LVPWd: 1.3 cm LA dimension: 3.8 cm FS: 35.0 % LAV(MOD-bp): 67.7 ml LA A4 area: 24.0 cm2 RA A4 area: 14.4 cm2 LAV(MOD-bp) Indexed: 37.1 ml/m2 LAV(MOD-sp2): 49.9 ml LAV(MOD-sp4): 83.2 ml Time Measurements MV dec time: 0.28 sec Doppler Measurements & Calculations MV E max nathan: 93.8 cm/sec Lat Peak E' Nathan: 10.2 cm/sec Med Peak E' Nathan: 7.2 cm/sec MV A max nathan: 62.6 cm/sec E/E' lat: 9.2 E/E' med: 13.1 MV E/A: 1.5 MV V2 max: 104.0 cm/sec MV P1/2t max nathan: 105.0 cm/sec Ao V2 max: 137.8 cm/sec MV max P.3 mmHg MV P1/2t: 103.7 msec Ao max P.6 mmHg MV V2 mean: 53.8 cm/sec MV dec slope: 296.4 cm/sec2 MV mean P.4 mmHg MV V2 VTI: 32.3 cm MVA(P1/2t): 2.1 cm2 LV V1 max: 92.4 cm/sec PA V2 max: 109.8 cm/sec PI end-d nathan: 82.8 cm/sec LV V1 max P.4 mmHg TR max nathan: 295.2 cm/sec TR max P.9 mmHg Interpretation Summary Normal LV size. Left ventricular systolic function is normal. The estimated ejection fraction is 65 %. Stage 2 diastolic dysfunction. Bubble contrast study negative for right to left interatrial shunt. Mild (1+) eccentric mitral valve insufficiency. Pulmonary artery systolic pressure is 38 mmHg. Ordering Physician: Eamon Escobedo Referring Physician: Eamon Escobedo Performed By: Barney Thompson RCS
--- NOTE | 2019-08-02 11:44 | STRESSREP ---
Stress Test Report Pharmacologic myocardial perfusion stress test. 78-year-old lady with a history of chest pain. Stress protocol: Resting EKG demonstrates normal sinus rhythm with a rate of 55 bpm normal intervals are noted resting blood pressure is 130/60 mmHg. 0.4 mg of regadenoson was infused per usual protocol followed by rapid intravenous saline flush injection continuous EKG monitoring was performed. The maximum heart rate attained was 84 bpm which was 58% of maximum predicted heart rate the maximum workload was 1 metabolic equivalent. At rest there were no ST or T wave changes noted to suggest abnormal flow reserve at peak infusion nonspecific ST-T wave changes were noted with no meet the criteria for abnormal flow reserve. No clinical angina was noted the test was terminated due to completion. Myocardial perfusion protocol. 13.6 mCi of technetium 99m sestamibi was injected at rest. 0.4 mg of regadenoson was infused per usual protocol. At peak infusion 42.0 mCi of technetium 99m sestamibi was injected stress images were obtained stress and rest images were reconstructed and compared in the short axis vertical long horizontal long axis. Gated images were also obtained Perfusion SPECT analysis: Review of the stress images demonstrate normal uptake of tracer noted in all areas of the myocardium the resting images similarly demonstrate normal uptake of tracer noted in all areas of the myocardium. No reversibility is noted suggest ischemia no previous infarct is noted. Gated SPECT analysis: The gated ejection fraction is noted to be 67%. Conclusion: Normal pharmacologic myocardial perfusion stress test. Preserved ejection fraction.
== END | disposition home or self-care (01) ==
LOC: CVS 06:40
PROVIDERS: PCP Family Medicine; Referring Provider Internal Medicine Cardiovascular Disease; Visit Provider Internal Medicine Cardiovascular Disease
DX: R07.9 Chest pain, unspecified (principal); I11.0 Hypertensive heart disease with heart failure; I50.32 Chronic diastolic (congestive) heart failure; R06.02 Shortness of breath; R60.9 Edema, unspecified
CPT/HCPCS: 78452; 93017; 93306; A9500; A4216; J2785

== ENCOUNTER → 2019-08-10 12:09 | Outpatient (CLI) | payer MEDICARE, OTHER, SELFPAY ==
[2019-08-10 13:17] LABS: Amphetamine Urine VISTA NEGATIVE (<1000 ng/mL); Barbiturate Urine VISTA NEGATIVE (< 200 ng/mL); Benzodiazepine Urine VISTA NEGATIVE (< 200 ng/mL); Cocaine Urine VISTA NEGATIVE (< 300 ng/mL); Ecstacy Urine VISTA POSITIVE (< 500 ng/mL); Methadone Urine VISTA NEGATIVE (< 300 ng/mL); PCP Urine VISTA NEGATIVE (< 25 ng/mL); THC Urine VISTA NEGATIVE (< 50 ng/mL); Vista UDS pH Range 6
== END ==
PROVIDERS: PCP Family Medicine; Referring Provider Anesthesiology Pain Medicine; Visit Provider Anesthesiology Pain Medicine
DX: F11.20 Opioid dependence, uncomplicated (principal)
CPT/HCPCS: 80307

== ENCOUNTER → 2019-09-16 | Outpatient (CLI) | payer MEDICARE, OTHER, SELFPAY ==
[2019-07-19 10:49] VITALS: BMI 26.4
--- NOTE | 2019-09-17 11:32 | PFT_ITS ---
INTRODUCTION: The patient is a 79-year-old -[place] female that presents for pulmonary function studies secondary to a diagnosis of shortness of breath. Respiratory therapy reports good patient effort. Bronchodilators were used during testing. INTERPRETATION: Forced expiration spirometry demonstrates the presence of a moderately severe large airways obstructive ventilatory defect. There was a significant response to aerosolized bronchodilators noted. Spirograms are of good quality and do not plateau indicating slow emptying of the lungs. Body plethysmography was pe rformed and reveals an elevated RV to 153% of predicted, indicative of underlying air trapping. Diffusing capacity by single breath CO is within normal limits. IMPRESSION: Partially reversible moderately severe large airways obstructive ventilatory defect with associated air trapping.
== END | disposition home or self-care (01) ==
LOC: PSN 12:39
PROVIDERS: PCP Family Medicine; Referring Provider Nurse Practitioner Acute Care; Visit Provider Nurse Practitioner Acute Care
DX: R06.02 Shortness of breath (principal)
CPT/HCPCS: 94060; 94726; 94729

== ENCOUNTER → 2019-09-17 | Outpatient (CLI) | payer MEDICARE, OTHER, SELFPAY ==
[2019-07-19 10:49] VITALS: BMI 26.4
[2019-09-17 10:51] VITALS: PULSE 59; PULSE 61; PULSE 71; PULSE 75; PULSE 80; PULSE 82; PULSE 83; O2SAT 92; O2SAT 96; O2SAT 97; O2SAT 98
--- NOTE | 2019-09-17 10:55 | CPS ---
SHE RESTED FROM 440 TO 510 DUE TO SOB AND HER KNEEW HURT.
--- NOTE | 2019-09-19 08:18 | WT_ITS ---
PSN 6 Minute Walk Test - 6 Minute Walk Test 6 Minute Walk Test: 6 Minute Walk Test PSN:6-Minute Walk Test Start: 09/17/19 10:50 Freq: Status: Active Protocol: [id number] Document 09/17/19 10:51 FR (Rec: 09/17/19 10:56 FR [id number]) 6 Minute Walk Test Date Performed 09/17/19 Time Performed 10:30 Height 5 ft 5.5 in Weight: 167 lb Weight in Pounds 167.[address]: MARIXA/VADIM Assistive device used: None Pre-test Oxygen Delivery Method Room Air Pulse Ox (%) 96 Pulse Rate (60-100 beats/min) 61 Dyspnea Chio Scale (0-10) 0 Exertion Chio Scale (6-20) 6 1st minute Oxygen Delivery Method Room Air Pulse Ox (%) 97 Pulse Rate (60-100 beats/min) 75 2nd minute Oxygen Delivery Method Room Air Pulse Ox (%) 92 Pulse Rate (60-100 beats/min) 80 3rd minute Oxygen Delivery Method Room Air Pulse Ox (%) 96 Pulse Rate (60-100 beats/min) 83 Reported Symptoms Increased Work of Breathing 4th minute Oxygen Delivery Method Room Air Pulse Ox (%) 97 Pulse Rate (60-100 beats/min) 82 Number of Rests Taken 1 Reported Symptoms Increased Work of Breathing 5th minute Oxygen Delivery Method Room Air Pulse Ox (%) 96 Pulse Rate (60-100 beats/min) 83 Reported Symptoms Increased Work of Breathing 6th minute Oxygen Delivery Method Room Air Pulse Ox (%) 98 Pulse Rate (60-100 beats/min) 71 Dyspnea Chio Scale (0-10) 5 Exertion Chio Scale (6-20) 11 Reported Symptoms Increased Work of Breathing Post-test Oxygen Delivery Method Room Air Pulse Ox (%) 98 Pulse Rate (60-100 beats/min) 59 L Full Laps Walked 12 Partial Lap, Number of Tiles Walked 11 Total Distance Walked (ft) 719 09/17/19 10:55 Cardiopulmonary Services by Jacqueline Díaz SHE RESTED FROM 440 TO 510 DUE TO SOB AND HER KNEEW HURT. Initialized on 09/17/19 10:55 - END OF NOTE - Interpretation Interpretation: The patient ambulated 719 feet over the course of 6 minutes beginning on room air with the use of a cane. The patient did take breaks during testing. Pretesting oxygen saturation was noted to be 96% on room air. With ambulation, the leah oxygen saturation was 92%. Although there was no significant exertional oxygen desaturation, the sensitivity for detecting such a change would be limited by the patient's walk distance and breaks taken during testing. - Recommendations Recommendations: There is no indication for the use of supplemental oxygen at this time.
== END | disposition home or self-care (01) ==
LOC: PSN 10:10
PROVIDERS: PCP Family Medicine; Referring Provider Nurse Practitioner Acute Care; Visit Provider Nurse Practitioner Acute Care
DX: R06.02 Shortness of breath (principal)
CPT/HCPCS: 94618

== ENCOUNTER → 2020-03-27 12:33 | Outpatient (CLI) | payer MEDICARE, OTHER, SELFPAY ==
[2019-11-04 11:08] VITALS: BMI 26.4
== END ==
PROVIDERS: PCP Family Medicine; Referring Provider Anesthesiology Pain Medicine; Visit Provider Anesthesiology Pain Medicine
DX: F11.20 Opioid dependence, uncomplicated (principal)

== ENCOUNTER → 2021-09-12 | Outpatient (CLI) | payer MEDICARE, OTHER, SELFPAY ==
[2021-09-12 13:43] LABS: International Normalized Ratio 2.3; Prothrombin Time (Protime)PT. 24.8 SECONDS (11.7-14.9)
== END | disposition home or self-care (01) ==
LOC: LABSPEC 13:02
PROVIDERS: PCP Family Medicine; Visit Provider Family Medicine
DX: I82.4Y2 Acute embolism and thrombosis of unspecified deep veins of left proximal lower extremity (principal)
CPT/HCPCS: 85610

== ENCOUNTER → 2021-10-09 | Outpatient (CLI) | payer MEDICARE, OTHER, SELFPAY ==
--- NOTE | 2021-10-10 08:38 | PFT ---
INTRODUCTION: The patient is a 81-year-old -[place] Citizen female that presents for pulmonary function studies secondary to a diagnosis of COPD. Respiratory therapy reported good patient effort. Bronchodilators were used during testing. INTERPRETATION: Forced expiration spirometry demonstrates the presence of a moderate large airways obstructive ventilatory defect. There was a significant response to aerosolized bronchodilators. Spirograms are of good quality but do not plateau indicating slow emptying of the lungs. Body plethysmography was performed and revealed an elevated RV to 171% of predicted, indicative of underlying air trapping. Diffusing capacity by single breath CO is reduced at 57% of predicted. IMPRESSION: Partially reversible moderate large airways obstructive ventilatory defect with associated air trapping and symmetric reduction in diffusing capacity.
== END | disposition home or self-care (01) ==
LOC: PSN 12:04
PROVIDERS: PCP Family Medicine; Referring Provider Internal Medicine Critical Care Medicine; Visit Provider Internal Medicine Critical Care Medicine
DX: J44.9 Chronic obstructive pulmonary disease, unspecified (principal)
CPT/HCPCS: 94060; 94726; 94729

== ENCOUNTER → 2021-11-08 | Outpatient (CLI) | payer MEDICARE, OTHER, SELFPAY ==
--- NOTE | 2021-11-08 12:48 | MRI_ITS ---
STUDY: MRI BRAIN WITHOUT CONTRAST REASON FOR EXAM: Female, 81 years old. dementia TECHNIQUE: Standardized multiplanar fat and water weighted pulse sequences were obtained. COMPARISON: CT of the brain 11/29/2011 MRI of the brain 03/28/2015 FINDINGS: Minor cortical atrophy and periventricular white matter ischemic changes without mass effect or restricted diffusion.. Normal bilateral basal ganglia. Normal thalami. There is no extra-axial fluid accumulation. Normal flow voids within the major intracranial circulation suggesting patency by spin echo criteria. Partial empty sella deformity. Normal, infundibular stalk, optic chiasm and hypothalamus. Normal tectal plate and pineal gland. Normal midbrain, corine and medulla. Normal cerebellum. Normal basal cisterns. Normal bilateral temporal bones. Normal bilateral internal auditory canals. No demonstrated orbital abnormality, within the constraints of a routine brain study. Normal visualized paranasal sinuses. Normal calvarium and skull base. Normal visualized soft tissue structures. Normal visualized upper cervical spine. MRI/Brain without Contrast IMPRESSION: Minor cortical atrophy and periventricular white matter ischemic changes without evidence for acute infarct Electronically Signed: Nahum Victoria MD at 17:32 EDT ,
== END | disposition home or self-care (01) ==
LOC: MRI 12:48
PROVIDERS: PCP Family Medicine; Referring Provider Psychiatry & Neurology Neurology; Visit Provider Psychiatry & Neurology Neurology
DX: F03.90 Unspecified dementia, unspecified severity, without behavioral disturbance, psychotic disturbance, mood disturbance, and anxiety (principal)
CPT/HCPCS: 70551

== ENCOUNTER → 2023-01-01 | Outpatient (CLI) | payer MEDICARE, SELFPAY ==
[2023-01-01 10:42] LABS: Hematocrit 40.6 % (37-47); Mean Corpuscular Hgb 30.7 pg (27.0-32.0); Mean Corpuscular Volume 95.8 fL (81-99); Mean Platelet Vol. 11.1 fl (6.2-12.0); Platelet Count 210 K/mm3 (150-450); RBC Distribution Width CV 12.7 % (11.6-14.6); RBC Distribution Width SD 44.4 fl (35.1-43.9); Red Blood Count 4.24 M/mm3 (4.2-5.4); White Blood Count 5.3 K/mm3 (4.4-11.0)
[2023-01-01 11:50] LABS: AST(SGOT) 17 U/L (15-37); Alanine Aminotransfer ALT/SGPT 23 U/L (13-56); Albumin, Serum 3.4 g/dL (3.2-5.0); Alkaline Phosphatase 76 U/L (45-117); Anion Gap 8 (5-15); BUN 24 mg/dL (7-18); BUN/Creat Ratio 22.9 RATIO (10-20); Calcium,Total 8.8 mg/dL (8.5-10.1); Chloride 112 mmol/L (98-107); Creatinine, Serum 1.05 mg/dL (0.55-1.02); EST Glomerular Filtration Rate 54 mL/min (>60); Est Glom Filt Rate - Afr Amer 65 mL/min (>60); Globulin 3.4 g/dL (2.2-4.2); Glucose 98 mg/dL (74-106); Potassium 3.7 mmol/L (3.5-5.1); Protein, Total 6.8 g/dL (6.4-8.2); Sodium Level 144 mmol/L (136-145); Thyroid Stim Hormone (TSH) 2.41 uIU/mL (0.358-3.74)
[2023-01-01 12:42] LABS: Vitamin B12 439 pg/mL (211-911)
[2023-01-05 20:07] LABS: Vitamin B1, Thiamine 108.7 nmol/L (66.5-200.0)
== END | disposition home or self-care (01) ==
PROVIDERS: PCP Family Medicine; Referring Provider Psychiatry & Neurology Neurology; Visit Provider Psychiatry & Neurology Neurology
DX: F03.90 Unspecified dementia, unspecified severity, without behavioral disturbance, psychotic disturbance, mood disturbance, and anxiety (principal); I10 Essential (primary) hypertension
CPT/HCPCS: 36415; 80053; 82607; 82746; 84425; 84443; 85027

== ENCOUNTER 2023-06-02 10:30 | Day surgery (SDC) | payer MEDICARE, SELFPAY ==
[2023-06-02 10:51] VITALS: BP 161/89; PULSE 80; RESP 18; TEMP 36.2; O2SAT 97; BMI 27.3
[2023-06-02] MEDS: Lactated Ringers 1,000 ML 15 ML IV (10:51)
[2023-06-02 11:00] LABS: INR Fingerstick 1.1; Prothrombin Time Fingerstick 12.5 SEC (11.7-14.9)
[2023-06-02 11:13] LABS: Bedside Glucose 93 mg/dL (74-106)
--- NOTE | 2023-06-02 11:30 | RAD_ITS ---
STUDY: Sacrum, Intraprocedural Exam REASON FOR EXAM: Female, 65 years old. LUMBAR RADIO FREQ ABLATION TECHNIQUE: 2 lateral fluoroscopic images of the sacrum were obtained on a C-arm for ablation. The examination was performed for documentation. COMPARISON: No relevant prior comparison study available FINDINGS: Lateral views of the sacrum were obtained on a C-arm for ablation. The examination was performed for documentation only. The fluoroscopy time was 4.3 seconds. The radiation dose is 1.31 mGy. RAD/Fluor Guidance for Spine Inj IMPRESSION: Intraprocedural exam as described above. Electronically Signed: Michael Hawthorne MD at 13:58 EDT ,
[2023-06-02] MEDS: Lidocaine 1% (5 ml sdv) 5 ML Vial (12:51)
[2023-06-02] MEDS: 0.9% Normal Saline (Pres. free 10 ML Vial (12:51)
[2023-06-02] MEDS: MethylPREDNISolone Acetate 80 MG/ML Vial (12:52)
--- NOTE | 2023-06-02 12:53 | OP.PCM_ITS ---
Report of Operation Date of Procedure: 06/02/23 Pre-Operative Diagnosis: Lumbosacral radiculopathy, lumbosacral degenerative di sc disease, lumbosacral spinal stenosis Post-Operative Diagnosis: Lumbosacral radiculopathy, lumbosacral degenerative disc disease, lumbosacral spinal stenosis Surgery/Procedure Performed:: Diagnostic/therapeutic caudal epidural steroid injection under fluoroscopic guidance Type of Anesthesia: MAC Estimated Blood Loss (mL): Minimal Description of Procedure: DESCRIPTION OF PROCEDURE: History and physical of today was reviewed. Risks and benefits of the procedure were explained. The patient understood and agreed to proceed. Informed consent was obtained. IV inserted per routine protocol. The patient was taken to the operating room and placed in the prone position with a pillow positioned underneath the abdomen. The lower back and tailbone area was prepped and draped in a sterile fashion using iodine x3. Under fluoroscopy guidance on a lateral view, the caudal space was identified. The skin and subcutaneous tissue was anesthetized with approximately 3 mL of 1% lidocaine using a 25-gauge regular needle. Under direct visualization with fluoroscopy, using a 22-gauge 3-1/2-inch spinal needle, the needle was advanced via the skin through the sacral hiatus. The tip of the needle was passed through the sacrococcygeal ligament and advanced to approximately S4 area. After negative aspiration of blood or CSF, a total of 3 mL of contrast was injected to confirm correct placement of the needle as well as cephalad spread. The spread was followed to approximately L5 area. After confirmation on AP as well as lateral view and repeated negative aspiration, a total of 15 mL of preservative-free 0.125% Marcaine with 80 mg of Depo-Medrol was injected easily. The needle was then removed intact. The patient experienced no sign or symptoms of intrathecal or intravascular injection. The patient experienced no paresthesia. The procedure was completed without any apparent difficulty or any complications. The patient appeared to tolerate it well. ASSESSMENT AND PLAN: This is an 82-year-old female with lumbosacral radiculopathy, lumbosacral degenerative disc disease, lumbosacral spinal stenosis status post diagnostic/therapeutic caudal epidural steroid injection, patient will continue her current medications, patient will follow in approximately 2 weeks for reevaluation. Complications None
[2023-06-02 13:00] VITALS: BP 159/54; BP 161/89; PULSE 77; RESP 16; TEMP 36.9; O2SAT 100
[2023-06-02 13:05] VITALS: BP 161/89; BP 171/64; PULSE 82; RESP 16; O2SAT 99
[2023-06-02 13:10] VITALS: BP 161/64; BP 161/89; PULSE 78; RESP 16; O2SAT 100
[2023-06-02 13:15] VITALS: BP 127/89; BP 161/89; PULSE 80; RESP 16; TEMP 37.1; O2SAT 100
[2023-06-02 13:27] VITALS: BP 161/89
== END 2023-06-02 13:43 | disposition home or self-care (01) ==
LOC: SDC 10:32 → AC 10:37
PROVIDERS: PCP Family Medicine; Referring Provider Anesthesiology Pain Medicine; Visit Provider Anesthesiology Pain Medicine
PROC: 3E0S3BZ Introduction of Anesthetic Agent into Epidural Space, Percutaneous Approach (ICD-10-PCS; CPT 62282; principal; 2023-06-02 12:25)
DX: M51.17 Intervertebral disc disorders with radiculopathy, lumbosacral region (principal); I11.0 Hypertensive heart disease with heart failure; I50.32 Chronic diastolic (congestive) heart failure; J44.9 Chronic obstructive pulmonary disease, unspecified; E11.9 Type 2 diabetes mellitus without complications; M48.07 Spinal stenosis, lumbosacral region; Z79.01 Long term (current) use of anticoagulants; Z79.899 Other long term (current) drug therapy; Z86.718 Personal history of other venous thrombosis and embolism; Z86.711 Personal history of pulmonary embolism
CPT/HCPCS: 62323; 36416; 64483; 77003; 82962; 85610; J7120; J3490

== ENCOUNTER 2024-09-17 16:55 | Emergency (ER) | payer MEDICARE, SELFPAY ==
[2024-09-17 16:56] VITALS: BP 164/82; PULSE 71; RESP 16; TEMP 37.4; O2SAT 100; BMI 27.1
--- NOTE | 2024-09-17 17:26 | RAD_ITS ---
PROCEDURE: CHEST 1 VIEW (PORTABLE) 09/17/2024 REASON FOR EXAM: COUGH TECHNIQUE: Frontal view of the chest. COMPARISON: 07/19/2019 FINDINGS: Lungs/Pleura: Clear. No focal consolidation or sizable pleural effusion. Heart/Mediastinum: Within normal limits. Calcification of the aortic arch. Bones/Soft tissues: Epigastric surgical clips and left humeral head anchor screw. RAD/Chest 1 View (Portable) IMPRESSION: No evidence of acute cardiopulmonary disease. Reading Location: [id number]
--- NOTE | 2024-09-17 17:27 | EX.ED.VIS.UR ---
HPI HPI - URI History of Present Illness Chief Complaint: Cough Detail of Chief Complaint: Cold symptoms Informant: patient Narrative Narrative: Patient presents to the emergency department with complaint of cold symptoms that started yesterday. She describes a cough that is mostly dry. She complains of bodyaches and a headache. Denies fever. She denies sick contacts. She also has had loose stools this morning. She denies vomiting or abdominal pain. She does describe some urinary frequency that is been ongoing. ROS ROS ED Review of Systems ROS Unobtainable: other Constitutional Constitutional ED: Reports lethargy; Denies chills, fever(s), sweats or weight loss Eyes Eyes: Denies blurry vision, change in vision or diplopia ENT ENT ED: Reports sore throat; Denies rhinorrhea Cardiovascular Cardiovascular: Denies chest pain, orthopnea or racing heartbeat Respiratory/Chest Respiratory/Chest: Reports cough; Denies dyspnea, dyspnea on exertion, orthopnea or sputum Gastrointestinal Gastrointestinal: Denies abdominal pain, diarrhea, nausea or vomiting Genitourinary Genitourinary ED: Reports urinary frequency; Denies dysuria or hematuria Musculoskeletal Musculoskeletal: Reports myalgias; Denies arthralgias, back pain or neck pain Integumentary Denies abscess, Abrasions or rash Neurologic Neurologic: Denies headache(s) or weakness Psychiatric Psychiatric: Denies anxiety, depression or suicidal thoughts Endocrine Endocrinology: Denies polydipsia, polyphagia or polyuria Hematologic/Lymphatic Hematologic/Lymphatic: Denies easy bleeding, easy bruising or lymphadenopathy Allergic/Immunologic Allergic/Immunologic ED: Denies mouth swelling, tongue swelling or urticaria PFSH PFS Medical History Ambulates with cane Anxiety Back pain Benign neoplasm of rectum and anal canal Cardiology follow-up encounter Chronic diastolic (congestive) heart failure Colon polyp COPD (chronic obstructive pulmonary disease) Depression Diverticulitis Essential (primary) hypertension Fibromyalgia Gastric reflux Generalized osteoarthritis GERD (gastroesophageal reflux disease) Herniated cervical disc History of CHF (congestive heart failure) History of DVT (deep vein thrombosis) History of echocardiogram History of edema History of nephrolithiasis History of pulmonary embolus (PE) (12/2011) History of stress test Hyperlipidemia Hypertension Localized edema Low iron Lumbago Lymphedema Mixed obstructive and restrictive ventilatory defect Non-smoker PND (post-nasal drip) Post-menopausal Pulmonary embolism 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) Rheumatoid arthritis SOB (shortness of breath) on exertion TIA (transient ischemic attack) Type II diabetes mellitus Venous stasis Wears dentures Wears glasses Wears hearing aid Home Medications ?Medication ?Instructions ?Recorded ?Last Taken ?Type tizanidine 4 mg tablet 4 mg PO Q8H PRN PRN Muscle Spasm 09/12/14 06/01/23 History albuterol sulfate 90 mcg/actuation 2 puff inhalation Q6H PRN 09/27/21 Unknown Rx aerosol inhaler shortness of breath or wheezing #1 device Nebulizer machine #1 ea 03/10/23 Unknown Rx duloxetine 60 mg capsule,delayed 60 mg PO BID 03/10/23 06/01/23 History release hydrocodone-acetaminophen 5-325mg 1 tab PO TID PRN pain 03/10/23 Unknown History 5mg-325mg hydroxychloroquine 200 mg tablet 200 mg PO BID ARTHRITIS 03/10/23 06/01/23 History ipratropium 0.5 mg-albuterol 3 mg 3 ml inhalation TID SOB &/OR 03/10/23 Unknown Rx (2.5 mg base)/3 mL nebulization WHEEZING #90 vials soln ferrous gluconate 324 mg (37.5 mg 324 mg PO BID 05/30/23 06/01/23 History iron) tablet magnesium 250 mg tablet 250 mg PO DAILY 05/30/23 06/01/23 History omeprazole 40 mg capsule,delayed 40 mg PO BID 05/30/23 06/02/23 History release trazodone 100 mg tablet 100 mg PO QHS 05/30/23 06/01/23 History hydrochlorothiazide 25 mg tablet 25 mg PO DAILY #90 tabs 08/22/23 Unknown Rx donepezil 10 mg tablet See Rx Instructions .Route 11/07/23 Unknown Rx .COMPLEX #90 tabs rimegepant 75 mg disintegrating 75 mg PO DAILY PRN migraine 11/07/23 Unknown Rx tablet (Nurtec ODT) headache #16 tabs topiramate 50 mg tablet See Rx Instructions .Route 11/07/23 Unknown Rx .COMPLEX #180 tabs acetaminophen 500 mg tablet 500 mg PO Q6H PRN 01/09/24 Unknown History (Tylenol Extra Strength) gabapentin 100 mg capsule 100 mg PO TID 01/09/24 Unknown History warfarin 7.5 mg tablet 7.5 mg PO .qd 01/09/24 Unknown History albuterol sulfate 0.63 mg/3 mL 0.63 mg inhalation Q4-6H PRN 02/10/24 Unknown History solution for nebulization losartan 50 mg tablet 50 mg PO QDAY #90 tabs 02/10/24 Unknown Rx benzonatate 100 mg capsule 100 mg PO TID PRN cough #14 caps 09/17/24 Unknown Rx Allergy/AdvReac Type Severity Reaction Status Date / Time No Known Allergies Allergy Verified 09/17/24 16:56 Family History Father Cancer prostate cancer Myocardial infarction Diabetes Mother CVA (cerebral vascular accident) Diabetes Brother Myocardial infarction Diabetes FH: CABG (coronary artery bypass surgery) Brother CAD (coronary artery disease) Hx coronary stents Sister Diabetes CVA (cerebral vascular accident) Other Family history of CVA Family history of ischemic heart disease Surgical History H/O colonoscopy H/O lithotripsy H/O right knee surgery H/O: hysterectomy hammer toe repair History of appendectomy History of cholecystectomy History of left heart catheterization (08/03/05) History of Lucy fundoplication History of repair of hiatal hernia History of tonsillectomy History of total right knee replacement (TKR) microdecompression with interbody fusion Previous back surgery S/P bunionectomy S/P laparotomy S/P rotator cuff repair Surgery for GERD Social History Smoking Status: Never smoker second hand exposure: No alcohol intake: never substance use type: does not use caffeine: Yes Type: coffee what type of physical activity do you participate in: none 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 Uvula midline. No trismus. No neck masses on exam. normocephalic and atraumatic; Negative for trauma or tenderness Tympanic Membrane ED: Yes TM's clear Eyes PERRL and EOMs intact bilaterally General Eye ED: Negative for pale conjunctiva or scleral icterus Neck no lymphadenopathy, supple and no JVD General: Negative for tenderness Chest Wall inspection of chest normal and palpation of chest normal Chest: Negative for tenderness Resp normal respiratory effort and clear to auscultation bilaterally Effort and Inspection: Negative for respiratory distress or pain with movement Auscultation: Negative for rhonchi, wheezes or diminished lung sounds Cardio regular rate, regular rhythm, S1 normal heart sound, S2 normal heart sound and no murmurs Peripheral Pulses: pulses 2+ throughout GI normal to inspection, nondistended, normoactive bowel sounds, soft to palpation, non-tender, non-distended and no masses Back/Spine no CVA tenderness and no thoracic nor lumbar tenderness Extremity normal to inspection General Extremety ED: Negative for edema General Extremity: Negative for edema Neuro oriented x3, CN's II-XII intact bilaterally, no sensory deficits noted and gait normal Sensorium / Orientation: awake, alert, oriented to person, oriented to place and oriented to time Motor Exam: strength 5/5 throughout and strength abnormal Psych mental status grossly normal Skin no rashes or lesions noted and no wounds MDM MDM MDM Narrative Medical decision making narrative: Patient presents the emergency department with cold symptoms that started yesterday. Patient also complains of some urinary frequency. She complains of bodyaches and headache. Clinically suspect likely a viral syndrome and she is also had some loose stools. I did obtain COVID flu and RSV testing which was negative. Patient had a urinalysis that was negative for infection. Chest x-ray obtained was unremarkable and did not show any pneumonia or acute process. At this point advised to take Tylenol for fever and discomfort. Will order Testayloron Dorcas and advised to follow-up with primary care physician within next 3 to 5 days. Lab Data Attestation: I reviewed the patient's lab results. Labs: Laboratory Results - last 24 hr 09/17/24 17:45 Urine Color Yellow Urine Clarity Clear Urine pH 7.0 Ur Specific [place] 1.010 Urine Protein 15 H Urine Glucose (UA) Normal Urine Ketones Negative Urine Occult Blood Negative Urine Nitrite Negative Urine Bilirubin Negative Urine Urobilinogen Normal Ur Leukocyte Esterase 100 H Urine RBC 0-5 SEEN Urine WBC 0-5 SEEN Ur Squamous Epith Cells 0 SEEN Urine Bacteria 2+ Urine Mucus 0 SEEN Radiography Diagnostic Testing: Clinical Impression(s) from Imaging Studies Chest X-Ray 09/17/24 17:26 IMPRESSION: No evidence of acute cardiopulmonary disease. Reading Location: [id number] 1 view chest x-ray obtained interpreted by myself no evidence of infiltrate or pneumothorax or acute disease process. Radiology in agreement. Discharge Plan Triage Chief Complaint: Cough ED Provider: Ling Nettles Dx/Rx/DC Orders Clinical Impression: Viral URI Instructions: ED URI, Viral, No Abx (Adult) Prescriptions: New benzonatate 100 mg capsule 100 mg PO TID PRN (Reason: cough) Qty: 14 0RF No Action albuterol sulfate 0.63 mg/3 mL solution for nebulization 0.63 mg inhalation Q4-6H PRN losartan 50 mg tablet 50 mg PO QDAY Qty: 90 3RF hydrocodone-acetaminophen 5-325 mg tablet 1 tab PO TID PRN (Reason: pain) Patient Comments: take 1 tablet by mouth 2 to three times a day if needed for pain hydroxychloroquine 200 mg tablet 200 mg PO BID duloxetine 60 mg capsule,delayed release(DR/EC) 60 mg PO BID ipratropium-albuterol 0.5 mg-3 mg(2.5 mg base)/3 mL solution for nebulization 3 ml inhalation TID Qty: 90 6RF (DME) Nebulizer machine See Rx Instructions .ROUTE .MEDSUPPLY Qty: 1 0RF Rx Instructions: As directed donepezil 10 mg tablet See Rx Instructions .ROUTE .COMPLEX Qty: 90 2RF Dose Instruction: take 1 tablet by mouth at bedtime Rx Instructions: take 1 tablet by mouth at bedtime Nurtec ODT 75 mg tablet,disintegrating 75 mg PO DAILY PRN (Reason: migraine headache) Qty: 16 9RF topiramate 50 mg tablet See Rx Instructions .ROUTE .COMPLEX Qty: 180 2RF Dose Instruction: take 1 tablet by mouth twice a day Rx Instructions: take 1 tablet by mouth twice a day warfarin 7.5 mg tablet 7.5 mg PO .qd acetaminophen [Tylenol Extra Strength] 500 mg tablet 500 mg PO Q6H PRN gabapentin 100 mg capsule 100 mg PO TID tizanidine 4 MG tablet 4 mg PO Q8H PRN PRN (Reason: Muscle Spasm) trazodone 100 mg tablet 100 mg PO QHS Patient Comments: take 1 tablet by mouth at bedtime ferrous gluconate 324 mg (37.5 mg iron) tablet 324 mg PO BID magnesium 250 mg tablet 250 mg PO DAILY omeprazole 40 mg capsule,delayed release(DR/EC) 40 mg PO BID Rx Instructions: swallow whole; do not crush, chew, dissolve, cut, break albuterol sulfate 90 mcg/actuation HFA aerosol inhaler 2 puff inhalation Q6H PRN (Reason: shortness of breath or wheezing) Qty: 1 6RF Rx Instructions: administer with spacer hydrochlorothiazide 25 mg tablet 25 mg PO DAILY Qty: 90 3RF Primary Care Provider: Albert Jasso Referrals: Albert Jasso MD [Primary Care Provider] - 3-5 Days Print Language: Japanese Disposition Disposition: Home, Self Care
[2024-09-17 17:50] LABS: Mucous, Urine 0 SEEN /hpf (<or=2+); Squamous Epithelial Cells - UA 0 SEEN /hpf (5-10)
[2024-09-17 17:55] LABS: Color, Urine Yellow (Yellow); Glucose, Dipstick Normal (Normal); Ketone-Dipstick Negative (Negative); Leukocyte Esterase-Dipstick 100 /ul (Negative); Nitrite-Dipstick Negative (Negative); Occult Blood-Urine Negative /ul (Negative); Protein-Dipstick 15 mg/dl (Negative); Specific Gravity, Urine 1.010 (1.002-1.030); Urine Bilirubin Dipstick Negative (Negative)
[2024-09-17 18:05] LABS: Red Blood Cells-Urine 0-5 SEEN /hpf (0-5)
[2024-09-17 18:56] VITALS: BP 148/79; PULSE 72; RESP 16; O2SAT 99
[2024-09-17 19:37] VITALS: BP 145/79; PULSE 72; RESP 16; TEMP 37.1; O2SAT 100
== END 2024-09-17 19:38 | disposition home or self-care (01) ==
PROVIDERS: Emergency Provider Emergency Medicine; PCP Family Medicine; Visit Provider Emergency Medicine
DX: J06.9 Acute upper respiratory infection, unspecified (principal); I50.32 Chronic diastolic (congestive) heart failure; I11.0 Hypertensive heart disease with heart failure; E11.9 Type 2 diabetes mellitus without complications; R35.0 Frequency of micturition; Z86.718 Personal history of other venous thrombosis and embolism; E78.5 Hyperlipidemia, unspecified; Z86.711 Personal history of pulmonary embolism
CPT/HCPCS: 71045; 81001; 87631; 99282

== ENCOUNTER → 2024-12-23 | Outpatient (CLI) | payer MEDICARE, SELFPAY ==
--- NOTE | 2024-12-23 12:30 | ART_ITS ---
Reason For Study Reason For Study: Absent pedal pulses Procedure A bilateral lower extremity continuous wave Doppler with analog waveform analysis and ankle brachial indexes. Left Segmental Pressures Left brachial= 168mmHg. Left posterior tibial artery = 178mmHg. Left dorsalis pedis artery = 200mmHg. Left digit = 124 mmHg. The left dorsalis pedis waveforms are triphasic. The left posterior tibial artery waveforms are triphasic. Right Segmental Pressures Right brachial= 171mmHg. Right posterior tibial artery = 178mmHg. Right dorsalis pedis artery = 190mmHg. Right digit = 125 mmHg. The right dorsalis pedis waveforms are triphasic. The right posterior tibial artery waveforms are triphasic. Indices The right ankle brachial index by the dorsalis pedis is 1.11. The right ankle brachial index by the posterior tibial artery is 1.04. The right digital-brachial index is 0.73. The left ankle brachial index by the dorsalis pedis is 1.17. The left ankle brachial index by the posterior tibial artery is 1.04. The left digital-brachial index is 0.73. VL/Ankle Brachial Index Interpretation Summary Right YEISON 1.11, normal. Doppler/PVR waveforms of the right ankle normal at rest . TBI diminished, pedal/digit disease vs spasm. Left YEISON 1.17, normal. Doppler/PVR waveforms of the left ankle normal at rest. TBI diminished, pedal/digit disease vs spasm. Ordering Physician: Joseph Streeter Referring Physician: Albert Jasso Performed By: Eliza Stephens RVT
== END | disposition home or self-care (01) ==
LOC: CVS 12:26
PROVIDERS: PCP Family Medicine; Referring Provider Psychiatry & Neurology Neurology; Visit Provider Psychiatry & Neurology Neurology
DX: I73.9 Peripheral vascular disease, unspecified (principal); R00.1 Bradycardia, unspecified
CPT/HCPCS: 93225; 93226; 93922